=== PATIENT | female | born 1995 | race Caucasian/White ===

== ENCOUNTER 2018-04-21 18:57 | Emergency (ER) | payer OTHER ==
[~2018-04-21] VITALS: Ht 152.4 cm; Wt 52.2 kg
[2018-04-21 19:12] VITALS: Ht 152.4 cm; Wt 52.2 kg
[2018-04-21 19:58] VITALS: BP 105/70
== END 2018-04-21 19:58 | disposition home or self-care (01) ==
LOC: ED 18:57
DX: J03.90 Acute tonsillitis, unspecified (principal)
CPT/HCPCS: J0696; J1100; J2001

== ENCOUNTER 2018-11-20 23:53 | Emergency (ER) | payer OTHER ==
[~2018-11-20] VITALS: Ht 152.4 cm; Wt 58.1 kg
[2018-11-20 23:57] VITALS: Ht 152.4 cm; Wt 58.1 kg
[2018-11-21 00:21] LABS: BASOPHIL % 0.8 % (0-2); PLATELET COUNT 311 x10^3mcL (130-400)
[2018-11-21 00:25] LABS: RED CELL DISTRIBUTION WIDTH 16.5 % (11.5-14.5)
[2018-11-21 00:27] LABS: CALCIUM 9.3 mg/dL (8.5-10.1); CARBON DIOXIDE 25.4 mmol/L (21-32); CHLORIDE SERUM 102 mmol/L (98-107); CREATININE SERUM 0.6 mg/dL (0.6-1.0); GFR1 > 60 mL/min; GLUCOSE SERUM 95 mg/dL (74-106); POTASSIUM SERUM 3.5 mmol/L (3.5-5.1); SODIUM SERUM 133 mmol/L (136-145)
[2018-11-21 00:31] LABS: ALBUMIN 3.9 g/dL (3.4-5.0); ALKALINE PHOSPHATASE 61 U/L (46-116); ALT/SGPT 28 U/L (14-59); AST/SGOT 16 U/L (15-37); BILIRUBIN TOTAL 0.3 mg/dL (0.20-1.00)
[2018-11-21 02:14] VITALS: BP 107/57
== END 2018-11-21 02:14 | disposition home or self-care (01) ==
LOC: ED 23:53
PROVIDERS: Emergency Medicine
DX: O23.41 Unspecified infection of urinary tract in pregnancy, first trimester (principal); Z3A.01 Less than 8 weeks gestation of pregnancy
CPT/HCPCS: J2405; J7030

== ENCOUNTER 2019-04-20 17:53 | Emergency (ER) | payer MEDICAID ==
[~2019-04-20] VITALS: Ht 152.4 cm; Wt 68.5 kg
[2019-04-20 18:13] VITALS: Ht 152.4 cm; Wt 68.5 kg
[2019-04-20 19:42] VITALS: BP 137/71
== END 2019-04-20 19:42 | disposition home or self-care (01) ==
LOC: ED 17:53
DX: O26.86 Pruritic urticarial papules and plaques of pregnancy (PUPPP) (principal); Z3A.38 38 weeks gestation of pregnancy

== ENCOUNTER 2020-01-22 20:18 | Emergency (ER) | payer OTHER ==
[~2020-01-22] VITALS: Ht 152.4 cm; Wt 63.5 kg
[2020-01-22 21:07] VITALS: BP 118/77; Ht 152.4 cm; Wt 63.5 kg
== END 2020-01-22 21:40 | disposition home or self-care (01) ==
LOC: ED 20:18
DX: J03.90 Acute tonsillitis, unspecified (principal); H92.02 Otalgia, left ear